=== PATIENT | female | born 1935 | race Caucasian/White ===

== ENCOUNTER 2018-10-03 12:16 | Inpatient (IN) | payer OTHER ==
[~2018-10-03] VITALS: Ht 167.6 cm; Wt 70.8 kg
[2018-10-03 13:34] LABS: BASOPHILS # (AUTO) 0.02 x10^3/uL (0-0.1); BASOPHILS % (AUTO) 0 % (0-1); EOSINOPHILS # (AUTO) 0.02 x10^3/uL (0-0.4); EOSINOPHILS % (AUTO) 0 % (1-7); LYMPHOCYTES % (AUTO) 14 % (22-44); MD NO; MEAN CORPUSCULAR HEMOGLOBIN 30.7 pg (27.0-34.8); MEAN CORPUSCULAR HGB CONC 33.9 g/dL (32.4-35.8); MEAN CORPUSCULAR VOLUME 90.5 fL (80-100); MEAN PLATELET VOLUME 7.3 fL (7.4-10.4); MONOCYTES # (AUTO) 0.51 x10^3/uL (0.2-0.8); MONOCYTES % (AUTO) 8 % (2-9); NEUTROPHILS # (AUTO) 4.95 x10^3/uL (1.8-6.8); NEUTROPHILS % (AUTO) 77 % (42-75); PLATELET COUNT 256 x10^3/uL (130-400); RED BLOOD COUNT 4.97 x10^6/uL (3.82-5.3); RED CELL DISTRIBUTION WIDTH 12.6 % (9.6-15.2)
[2018-10-03 13:35] LABS: ALANINE AMINOTRANSFERASE 28 U/L (12-78); ANION GAP 6 mmol/L (5-15); CALCIUM 9.1 mg/dL (8.5-10.1); CHLORIDE 91 mmol/L (98-107); CREATININE 0.74 mg/dL (0.55-1.02)
[2018-10-03 13:39] LABS: ALKALINE PHOSPHATASE 54 U/L (45-117); BILIRUBIN,TOTAL 0.8 mg/dL (0.2-1.0); TOTAL PROTEIN 7.4 g/dL (6.4-8.2); TROPONIN I < 0.015 ng/mL (0.000-0.045)
[2018-10-03 13:40] LABS: INTERNATIONAL NORMALIZED RATIO 1.01 (0.93-1.1); PROTHROMBIN TIME 10.5 Seconds (9.6-11.5)
[2018-10-03] MEDS ORDERED: ASPI-496 PO (13:48)
[2018-10-03] MEDS ORDERED: HYDR12.53 PO (13:48)
[2018-10-03] MEDS ORDERED: CHOL500020 PO (13:48)
[2018-10-03] MEDS ORDERED: MULT-257 PO (13:48)
[2018-10-03] MEDS ORDERED: SODIUM CHLORIDE 0.9% 1,000 ML IV ONE (14:11)
[2018-10-03] MEDS ORDERED: SODIUM CHLORIDE FLUSH 10ML SYR IVF ONE (14:30)
[2018-10-03] MEDS ORDERED: SODIUM CHLORIDE 3% 500 ML IV SCH (15:30)
[2018-10-03] MEDS ORDERED: hydrALAzine 20 MG/ML, 1ML IVPush PRN (15:30)
[2018-10-03] MEDS ORDERED: ONDANSETRON 2MG/ML, 2ML IVPush PRN (15:30)
[2018-10-03] MEDS ORDERED: BISACODYL 10 MG SUPP PR PRN (15:30)
[2018-10-03] MEDS ORDERED: ONDANSETRON ODT 4 MG PO PRN (15:30)
[2018-10-03] MEDS ORDERED: ACETAMINOPHEN 325 MG TABLET PO PRN (15:30)
[2018-10-03] MEDS ORDERED: ENALAPRILAT 1.25 MG/ML, 2ML IVPush PRN (15:30)
[2018-10-03] MEDS ORDERED: DOCUSATE 100 MG CAPSULE PO PRN (15:30)
[2018-10-03] MEDS ORDERED: POLYETHYLENE GLYCOL 17 GM PACKET PO PRN (15:30)
[2018-10-03 16:25] VITALS: BP_SYST 149; BP_SYST 206; BP_DIAS 124; BP_DIAS 95
[2018-10-03 16:26] VITALS: BP 188/100
[2018-10-03 16:31] VITALS: BP 206/95
[2018-10-03 17:02] LABS: HEMOGLOBIN A1C 5.7 % (4.2-6.3)
[2018-10-03 19:00] VITALS: BP 163/79
[2018-10-03 20:21] LABS: SODIUM,URINE RANDOM 98 mmol/L
[2018-10-03 20:39] LABS: MICROSCOPIC INDICATED; OSMOLALITY,URINE 427 mOsm/kg (500-850)
[2018-10-03 20:41] LABS: CULTURE INDICATED? YES
[2018-10-03] MEDS ORDERED: SODIUM CHLORIDE 0.9% 1,000 ML IV SCH (21:30)
[2018-10-03] MEDS: LOSARTAN 25MG TABLET PO SCH (21:45)
[2018-10-04 00:23] LABS: ANION GAP 11 mmol/L (5-15); CALCIUM 8.2 mg/dL (8.5-10.1); CHLORIDE 94 mmol/L (98-107); CREATININE 0.58 mg/dL (0.55-1.02)
[2018-10-04 02:27] VITALS: BP 153/78
[2018-10-04 04:36] LABS: BASOPHILS # (AUTO) 0.06 x10^3/uL (0-0.1); BASOPHILS % (AUTO) 1 % (0-1); EOSINOPHILS # (AUTO) 0.08 x10^3/uL (0-0.4); EOSINOPHILS % (AUTO) 1 % (1-7); LYMPHOCYTES # (AUTO) 1.27 x10^3/uL (1-3.4); LYMPHOCYTES % (AUTO) 21 % (22-44); MD NO; MEAN CORPUSCULAR HGB CONC 33.9 g/dL (32.4-35.8); MEAN CORPUSCULAR VOLUME 91.3 fL (80-100); MEAN PLATELET VOLUME 7.4 fL (7.4-10.4); MONOCYTES # (AUTO) 0.75 x10^3/uL (0.2-0.8); MONOCYTES % (AUTO) 13 % (2-9); NEUTROPHILS # (AUTO) 3.83 x10^3/uL (1.8-6.8); NEUTROPHILS % (AUTO) 64 % (42-75); PLATELET COUNT 223 x10^3/uL (130-400); RED BLOOD COUNT 4.51 x10^6/uL (3.82-5.3); RED CELL DISTRIBUTION WIDTH 12.6 % (9.6-15.2)
[2018-10-04 04:46] LABS: ANION GAP 7 mmol/L (5-15); CALCIUM 8.3 mg/dL (8.5-10.1); CHLORIDE 95 mmol/L (98-107)
[2018-10-04 04:47] LABS: CREATININE 0.56 mg/dL (0.55-1.02)
[2018-10-04 08:18] LABS: ANION GAP 6 mmol/L (5-15); CALCIUM 8.7 mg/dL (8.5-10.1); CHLORIDE 95 mmol/L (98-107); CREATININE 0.62 mg/dL (0.55-1.02)
[2018-10-04 08:52] VITALS: BP 138/75
[2018-10-04] MEDS: LOSARTAN 25MG TABLET PO SCH (09:21)
[2018-10-04] MEDS: SODIUM CHLORIDE 1 GM TABLET PO SCH ×3 (09:21→20:13)
[2018-10-04] MEDS: MULTIVITAMIN 1 TABLET PO SCH (09:22)
[2018-10-04] MEDS ORDERED: CHOLECALCIFEROL 1,000 UNIT TABLET ONE (09:23)
[2018-10-04] MEDS: CEFTRIAXONE PMX 1GM/50ML 50 ML IV SCH (09:24)
[2018-10-04 14:06] VITALS: BP 123/72
[2018-10-04 14:15] LABS: ANION GAP 10 mmol/L (5-15); CALCIUM 8.4 mg/dL (8.5-10.1); CHLORIDE 96 mmol/L (98-107); CREATININE 0.68 mg/dL (0.55-1.02)
[2018-10-04 20:32] VITALS: BP 159/79
[2018-10-04 20:45] LABS: ANION GAP 10 mmol/L (5-15); CALCIUM 8.2 mg/dL (8.5-10.1); CHLORIDE 98 mmol/L (98-107); CREATININE 0.71 mg/dL (0.55-1.02)
[2018-10-05 00:49] VITALS: BP 157/79
[2018-10-05 00:51] VITALS: BP_SYST 151; BP_SYST 157; BP_DIAS 78; BP_DIAS 89
[2018-10-05 02:10] LABS: ANION GAP 10 mmol/L (5-15); CALCIUM 8.4 mg/dL (8.5-10.1); CHLORIDE 102 mmol/L (98-107); CREATININE 0.63 mg/dL (0.55-1.02)
[2018-10-05 07:17] VITALS: BP 170/77
[2018-10-05] MEDS: CEFTRIAXONE PMX 1GM/50ML 50 ML IV SCH (08:05)
[2018-10-05] MEDS: LOSARTAN 25MG TABLET PO SCH (08:06)
[2018-10-05] MEDS: SODIUM CHLORIDE 1 GM TABLET PO SCH ×3 (08:06→20:33)
[2018-10-05] MEDS: MULTIVITAMIN 1 TABLET PO SCH (08:06)
[2018-10-05 08:22] LABS: ANION GAP 6 mmol/L (5-15); CHLORIDE 103 mmol/L (98-107); CREATININE 0.63 mg/dL (0.55-1.02)
[2018-10-05] MEDS ORDERED: CHOLECALCIFEROL 1,000 UNIT TABLET PO SCH (09:00)
[2018-10-05 10:38] VITALS: BP 129/72
[2018-10-05 12:45] VITALS: BP 130/79
[2018-10-05 14:33] LABS: ANION GAP 7 mmol/L (5-15); CALCIUM 8.7 mg/dL (8.5-10.1); CHLORIDE 101 mmol/L (98-107); CREATININE 0.85 mg/dL (0.55-1.02)
[2018-10-05 19:41] VITALS: BP 128/73
[2018-10-05] MEDS ORDERED: ATORVASTATIN 20 MG TABLET PO SCH (21:00)
[2018-10-06 02:31] VITALS: BP 151/75
[2018-10-06 05:46] LABS: ANION GAP 5 mmol/L (5-15); CALCIUM 8.5 mg/dL (8.5-10.1); CHLORIDE 105 mmol/L (98-107)
[2018-10-06 05:49] LABS: CREATININE 0.61 mg/dL (0.55-1.02)
[2018-10-06 07:22] VITALS: BP 173/74
[2018-10-06] MEDS: LOSARTAN 25MG TABLET PO SCH (08:39)
[2018-10-06] MEDS: SODIUM CHLORIDE 1 GM TABLET PO SCH (08:39)
[2018-10-06] MEDS: CEFTRIAXONE PMX 1GM/50ML 50 ML IV SCH (08:39)
[2018-10-06] MEDS: MULTIVITAMIN 1 TABLET PO SCH (08:39)
[2018-10-06] MEDS ORDERED: LOSARTAN 25MG TABLET PO SCH (09:00)
[2018-10-06 10:10] VITALS: BP 150/80
[2018-10-06] MEDS ORDERED: LIDOCAINE/PF 1%, 30ML ONE (13:03)
[2018-10-06] MEDS ORDERED: SULF1TAB24 PO (14:27)
[2018-10-06] MEDS ORDERED: ATOR20TA9 PO (14:27)
[2018-10-06] MEDS ORDERED: SODI1TAB PO (14:27)
[2018-10-06] MEDS ORDERED: LOSA50TA7 PO (14:47)
== END 2018-10-06 15:05 | disposition home or self-care (01) | DRG 40 ==
LOC: ED 14:17 → EDIP 14:34 → 4WST 15:40
PROVIDERS: ADMIT Hospitalist; ATTEND Hospitalist
PROC: 0JH632Z Insertion of Monitoring Device into Chest Subcutaneous Tissue and Fascia, Percutaneous Approach (ICD-10-PCS; principal; 2018-10-06)
DX: S06.5X0A Traumatic subdural hemorrhage without loss of consciousness, initial encounter (principal); G93.41 Metabolic encephalopathy; N39.0 Urinary tract infection, site not specified; E87.1 Hypo-osmolality and hyponatremia; I49.9 Cardiac arrhythmia, unspecified; I10 Essential (primary) hypertension; B96.20 Unspecified Escherichia coli [E. coli] as the cause of diseases classified elsewhere; W18.30XA Fall on same level, unspecified, initial encounter; Z66 Do not resuscitate; Z98.51 Tubal ligation status; R27.0 Ataxia, unspecified; T50.2X5A Adverse effect of carbonic-anhydrase inhibitors, benzothiadiazides and other diuretics, initial encounter; Y92.89 Other specified places as the place of occurrence of the external cause; Y93.89 Activity, other specified; Y99.8 Other external cause status
CPT/HCPCS: 33282; 36415; 70450; 71045; 80048; 80053; 81001; 83036; 83930; 83935; 84295; 84300; 84443; 84484; 85025; 85610; 85730; 87077; 87086; 87186; 93005; 93306; 96374; 99285; C1764; G0378; J0696; J3490; 92523-GN; J0360; J7030

== ENCOUNTER → 2018-10-26 | Outpatient (CLI) | payer OTHER ==
[~2018-10-26] MED LIST: ASPI-496 PO; ATOR20TA37 PO; CHOL500020 PO; HYDR12.517 PO; LOSA50TA7 PO; MULT-257 PO; SODI1TAB PO; SULF1TAB24 PO
== END | disposition home or self-care (01) ==
LOC: CFH 13:08
PROVIDERS: ATTEND Physician Assistant Surgical
DX: S09.90XD Unspecified injury of head, subsequent encounter (principal); X58.XXXD Exposure to other specified factors, subsequent encounter
CPT/HCPCS: 70450